=== PATIENT | female | born 1965 | race African-American/Black ===

== ENCOUNTER 2017-02-28 10:42 | Inpatient (IN) | payer OTHER ==
[2017-02-28 12:25] VITALS: BMI 39.3
--- NOTE | 2017-02-28 14:21 | HP ---
Admission [facility] Chief Complaint: REHAB TX FOR COCAINE AND ALCOHOL DEPENDENCE Allergies/Adverse Reactions: Allergies Allergy/AdvReac Type Severity Reaction Status Date / Time Fish Containing Products Allergy Severe Hives Verified 02/28/17 12:37 tomato Allergy Severe Verified 02/28/17 12:37 orange juice Allergy Intermediate Swelling Verified 02/28/17 12:37 No Known Drug Allergies Allergy Verified 02/28/17 12:37 History of Present Illness: 52 Y/O AA/FEMALE WITH A HX OF ALCOHOL AND COCAINE DEPENDENCE SEEKING REHAB TX Exam Limitations: No Limitations - Ebola screening Have you traveled outside of the country in the last 21 days: No Have you had contact with anyone from an Ebola affected area: No Have you been sick,other than usual withdrawal symptoms: No Do you have a fever: No - Review of Systems Constitutional: Chills, Night Sweats, Changes in sleep EENT: reports: Blurred Vision (WEARS GLASSES), Nose Congestion (HX ALLERGIES), Dental Problems (MISSING UPPER TEETH) Respiratory: reports: Shortness of Breath (HX ASTHMA), Wheezing GI: reports: Constipated, Diarrhea : reports: Frequency, Urgency Musculoskeletal: reports: Back Pain, Joint Pain, Muscle Pain Integumentary: reports: Dryness Neuro: reports: Headache ([place] HEADACHES), Numbness, Tingling, Tremors, Unsteady Gait, Dizziness, Other (HX PERIPHERAL NEUROPATHY) Endocrine: reports: Increased Thirst, Increased Urine Hematology: reports: No Symptoms Reported Psychiatric: reports: Orientated x3, Anxious, Depressed (HX DEPRESSION) Other Systems: Reviewed and Negative Patient History - Patient Medical History Hx Anemia: No Hx Asthma: Yes (ALBUTEROL INH) Hx Chronic Obstructive Pulmonary Disease (COPD): No Hx Cancer: No Hx Cardiac Disorders: No Hx Congestive Heart Failure: No Hx Hypertension: Yes (NON COMPLAINT WITH MEDS.) Hx Hypercholesterolemia: No Hx Pacemaker: No HX Cerebrovascular Accident: No Hx Seizures: No Hx Dementia: No Hx Diabetes: Yes (TYPE II ON MEDS) Hx Gastrointestinal Disorders: No Hx Liver Disease: No Hx Genitourinary Disorders: No Hx Sexually Transmitted Disorders: Yes (GENITAL HERPES ON TXMENT) Hx Renal Disease (ESRD): No Hx Thyroid Disease: No Hx Human Immunodeficiency Virus (HIV): No (NEGATIVE HX) Hx Hepatitis C: No Hx Depression: Yes (ON MEDS ) Hx Suicide Attempt: Yes (2014 DRUG OD. DENIES SI AT PRESENT TIME) Hx Bipolar Disorder: Yes (ON MEDS) Hx Schizophrenia: Yes (ON MEDS) - Patient Surgical History Past Surgical History: No Hx Neurologic Surgery: No Hx Cataract Extraction: No Hx Cardiac Surgery: No Hx Lung Surgery: No Hx Breast Surgery: No Hx Breast Biopsy: No Hx Abdominal Surgery: No Hx Appendectomy: No Hx Cholecystectomy: No Hx Genitourinary Surgery: No Hx Section: No Hx Orthopedic Surgery: No Hx Hysterectomy: No Anesthesia Reaction: No - PPD History Previous Implant?: Yes Implanted On Prior [facility] Admission?: No Date: 12/24/15 PPD to be Administered?: Yes - Reproductive History Patient is a Female of Child Bearing Age (11 -55 yrs old): 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 History Hx Alcohol Use: Yes (BEER/LIQUOR) Hx Substance Use: Yes (COCAINE) Substance Use Type: Alcohol, Cocaine Hx Substance Use Treatment: Yes ([facility]) - Substances Abused Alcohol Route: Oral Frequency: Daily Amount used: 1 6 PK AND LIQUOR Age of first use: 12 Date of Last Use: 02/28/17 Crack Route: Smoking Frequency: Daily Amount used: $60 Age of first use: 35 Date of Last Use: 02/27/17 Family Disease History - Family Disease History Family Disease History: Diabetes: Grandparent (HTN; GRANDMOTHER ), Father (), Mother (htn), Other: Grandparent, Mother Admission Physical Exam BHS - Vital Signs Vital Signs: Vital Signs - 24 hr 02/28/17 12:23 Temperature 97.2 F L Pulse Rate 82 Respiratory 20 Rate Blood Pressure 166/85 - Physical General Appearance: Yes: No Apparent Distress, Obese, Anxious HEENTM: Yes: EOMI, Normocephalic, KUNAL, Pharynx Normal Respiratory: Yes: Chest Non-Tender, Lungs Clear, Normal Breath Sounds, No Respiratory Distress Neck: Yes: No masses,lesions,Nodules, Supple, Trachea in good position Breast: Yes: Breast Exam Deferred Cardiology: Yes: Regular Rhythm, Regular Rate, S1, S2 Abdominal: Yes: Normal Bowel Sounds, Non Tender, Soft, Protuberent Genitourinary: Yes: Other (N/C) Musculoskeletal: Yes: Within Normal Limits Extremities: Yes: Normal Range of Motion, Non-Tender Neurological: Yes: payment poster [id number] NML intact, Fully Oriented, Alert Integumentary: Yes: Dry, Warm Lymphatic: Yes: Within Normal Limits - Diagnostic (1) Alcohol dependence with uncomplicated withdrawal Current Visit: Yes Status: Acute (2) Cocaine dependence, uncomplicated Current Visit: Yes Status: Acute (3) [id number] Current Visit: Yes Status: Chronic (4) Essential hypertension Current Visit: Yes Status: Chronic (5) Herpes genitalis in women Current Visit: Yes Status: Chronic (6) Neuropathy Current Visit: Yes Status: Chronic (7) Nicotine dependence, uncomplicated Current Visit: Yes Status: Chronic Qualifiers: Nicotine product type: cigarettes Qualified Code(s): F17.210 - Nicotine dependence, cigarettes, uncomplicated (8) Asthma Current Visit: Yes Status: Chronic Qualifiers: Asthma severity: mild intermittent Asthma complication type: uncomplicated Qualified Code(s): J45.20 - Mild intermittent asthma, uncomplicated Cleared for Admission [facility] - Detox or Rehab Claeared for Rehab Admission: Yes [facility] Breath Alcohol Content Breath Alcohol Content: 0 Urine Pregancy Test - Result Urine Test Results: Negative- NO Line Present Urine Drug Screen - Results Drug Screen Negative: No Urine Drug Screen Results: DUSTIN-Cocaine
[2017-02-28] MEDS ORDERED: DOCUSATE SODIUM 100 MG CAPSULE (FP) PO SCH (14:30)
[2017-02-28] MEDS ORDERED: ACETAMINOPHEN 325 MG TABLET (FP) PO PRN (14:48)
[2017-02-28] MEDS ORDERED: P-EPHED 60MG/TRIPROLIDI 2.5MG TABLET PO PRN (14:48)
[2017-02-28] MEDS ORDERED: hydrOXYzine PAMOATE 25 MG CAPSULE (FP) PO PRN (14:48)
[2017-02-28] MEDS ORDERED: MAGNESIUM HYDROX 2400MG/30ML ORAL SUSPENSION 30 ML CUP PO PRN (14:48)
[2017-02-28] MEDS ORDERED: MAGNESIUM CITRATE 300 ML BOTTLE PO PRN (14:48)
[2017-02-28] MEDS ORDERED: MAG HYDROX/AL HYDROX/SIMETH 30 ML UNIT-DOSE CUP PO PRN (14:48)
[2017-02-28] MEDS ORDERED: NICOTINE POLACRILEX 2 MG GUM BUC PRN (14:48)
[2017-02-28] MEDS ORDERED: diphenhydrAMINE HCL 50 MG CAPSULE PO PRN (14:48)
[2017-02-28] MEDS ORDERED: LOPERAMIDE HCL 2 MG CAPSULE PO PRN (14:48)
[2017-02-28] MEDS ORDERED: DOCUSATE SODIUM 100 MG CAPSULE (FP) PO PRN (15:04)
[2017-02-28] MEDS ORDERED: INSULIN (NOVOLOG) ASPART 100 UNITS/ML 10ML VIAL ONE (16:30)
[2017-02-28] MEDS: INSULIN SLIDING SCALE (NOVOLOG) 1 VIAL SQ SCH (16:37)
[2017-02-28] MEDS: metFORMIN HCL 500 MG TABLET (FP) PO SCH (16:58)
[2017-02-28] MEDS: valACYclovir HCL 500 MG TABLET (FP) PO SCH (21:34)
[2017-02-28] MEDS: THIAMINE HCL 100 MG TABLET (FP) PO SCH (21:34)
[2017-02-28] MEDS: GABAPENTIN 300 MG CAPSULE (FP) PO SCH (21:35)
[2017-02-28] MEDS: INSULIN DETEMIR 100 UNITS/ML MDV SQ SCH (21:35)
[2017-02-28] MEDS: PROPRANOLOL HCL 10 MG TABLET (FP) PO SCH (21:36)
[2017-02-28] MEDS: NICOTINE 14 MG/24 HOURS TOPICAL PATCH TD SCH (21:36)
[2017-03-01] MEDS: metFORMIN HCL 500 MG TABLET (FP) PO SCH ×2 (06:37→17:01)
[2017-03-01] MEDS: INSULIN SLIDING SCALE (NOVOLOG) 1 VIAL SQ SCH ×2 (06:39→17:02)
--- NOTE | 2017-03-01 09:14 | EKG ---
Test Reason : Blood Pressure : / mmHG Vent. Rate : 067 BPM Atrial Rate : 067 BPM P-R Int : 122 ms QRS Dur : 098 ms QT Int : 418 ms P-R-T Axes : 052 047 059 degrees QTc Int : 441 ms NORMAL SINUS RHYTHM CANNOT RULE OUT ANTERIOR INFARCT , AGE UNDETERMINED ABNORMAL ECG NO PREVIOUS ECGS AVAILABLE Confirmed by TEMI DOE MD ([id number]) on 03/01/2017 9:13:49 AM Referred By: Confirmed By:TEMI DOE MD
[2017-03-01] MEDS: PROPRANOLOL HCL 10 MG TABLET (FP) PO SCH ×2 (09:15→21:19)
[2017-03-01] MEDS: NICOTINE 14 MG/24 HOURS TOPICAL PATCH TD SCH (09:15)
[2017-03-01] MEDS: GABAPENTIN 300 MG CAPSULE (FP) PO SCH ×2 (09:15→21:18)
[2017-03-01] MEDS: PRENATAL VITAMINS W/ FOLIC ACID TABLET (FP) PO SCH (09:16)
[2017-03-01] MEDS: LISINOPRIL 10 MG TABLET (FP) PO SCH (09:16)
[2017-03-01] MEDS: valACYclovir HCL 500 MG TABLET (FP) PO SCH ×2 (09:16→21:16)
[2017-03-01] MEDS: INSULIN DETEMIR 100 UNITS/ML MDV SQ SCH ×2 (09:52→21:19)
[2017-03-01] MEDS: IBUPROFEN 400 MG TABLET (FP) PO PRN (14:44)
[2017-03-01] MEDS ORDERED: INSULIN (NOVOLOG) ASPART 100 UNITS/ML 10ML VIAL ONE (17:00)
[2017-03-01] MEDS: THIAMINE HCL 100 MG TABLET (FP) PO SCH (21:16)
[2017-03-01] MEDS ORDERED: PT OWN MED DRAWER 7, Y5N ONE (22:59)
[2017-03-01] MEDS ORDERED: INSULIN DETEMIR 100 UNITS/ML MDV SQ ONE (23:01)
[2017-03-02] MEDS: INSULIN SLIDING SCALE (NOVOLOG) 1 VIAL SQ SCH ×2 (06:29→16:41)
[2017-03-02] MEDS: metFORMIN HCL 500 MG TABLET (FP) PO SCH ×2 (06:29→17:48)
[2017-03-02] MEDS: LISINOPRIL 10 MG TABLET (FP) PO SCH (09:13)
[2017-03-02] MEDS: valACYclovir HCL 500 MG TABLET (FP) PO SCH ×2 (09:13→21:57)
[2017-03-02] MEDS: GABAPENTIN 300 MG CAPSULE (FP) PO SCH ×2 (09:13→21:57)
[2017-03-02] MEDS: PROPRANOLOL HCL 10 MG TABLET (FP) PO SCH ×2 (09:13→21:57)
[2017-03-02] MEDS: PRENATAL VITAMINS W/ FOLIC ACID TABLET (FP) PO SCH (09:13)
[2017-03-02] MEDS: INSULIN DETEMIR 100 UNITS/ML MDV SQ SCH ×2 (09:14→22:23)
[2017-03-02] MEDS: NICOTINE 14 MG/24 HOURS TOPICAL PATCH TD SCH (09:14)
[2017-03-02] MEDS: IBUPROFEN 400 MG TABLET (FP) PO PRN (14:56)
[2017-03-02] MEDS ORDERED: PT OWN MED DRAWER 7, Y5N ONE ×3 (16:52→22:02)
[2017-03-02] MEDS: THIAMINE HCL 100 MG TABLET (FP) PO SCH (21:57)
[2017-03-03] MEDS: metFORMIN HCL 500 MG TABLET (FP) PO SCH ×2 (06:18→16:54)
[2017-03-03] MEDS: INSULIN SLIDING SCALE (NOVOLOG) 1 VIAL SQ SCH ×2 (06:34→16:55)
--- NOTE | 2017-03-03 09:02 | HP ---
Psychiatrist Admission - Data Date of interview: 03/03/17 Admission source: [facility] Identifying data: This is the first admission to [address] [place] [address] for this 52 years old AA single mother of 5 grown children, supported by [facility],resides wirh boyfriend in low income house. Medical History: HTN,DM,Polyneuropathy. Psychiatric History: PAtient reports first contact with psychiatrist at 12 yearsold due to first nervious breakdown.Patient was admitted to the hospoital, dx with Schizoaffective disorder and placed on medications.Patient reports 10 more psychiatric hospitalizations.Patient reports most recent admission to [facility] in the [place] due to noncompliance with medicarions,depressed mood,drug use and drinking.Patient spent 6 days and restarted her medications: Trazodone 50 mg po hs ,Seroquel 200 mg po hs and Neurontin 300 mg po tid, Propranolol 10 mg po bid. Physical/Sexual Abuse/Trauma History: denies Vital Signs: Vital Signs - 24 hr 03/02/17 03/03/17 03/03/17 22:15 03:30 07:02 Temperature 98.3 F Pulse Rate 56 L 64 Respiratory 18 18 Rate Blood Pressure 176/87 135/86 Allergies/Adverse Reactions: Allergies Allergy/AdvReac Type Severity Reaction Status Date / Time Fish Containing Products Allergy Severe Hives Verified 02/28/17 12:37 tomato Allergy Severe Verified 02/28/17 12:37 orange juice Allergy Intermediate Swelling Verified 02/28/17 12:37 No Known Drug Allergies Allergy Verified 02/28/17 12:37 Date of last physical exam: 02/28/17 Concur with the findings of this exam: Yes - Substance Abuse/Tx History Hx Alcohol Use: Yes (drinking since 12 yo,beer,vodka spending $30 daily) Hx Substance Use: Yes (reports using cocaine since 45 yo,$250 daily) Substance Use Type: Alcohol, Cocaine Hx Substance Use Treatment: Yes - Admission Criteria Previous failed treatment: Yes Poor recovery environment: Yes Comorbidities: Yes Lacks judgement: Yes Mental Status Exam - Mental Status Exam Alert and Oriented to: Time, Place, Person Cognitive Function: Grossly Intact Patient Appearance: Well Groomed Mood: Anxious, Irritable Affect: Mood Congruent, Labile Patient Behavior: Cooperative Speech Pattern: Clear Voice Loudness: Normal Thought Process: Goal Oriented Thought Disorder: Being Controlled Hallucinations: Denies Suicidal Ideation: Denies Homicidal Ideation: Denies Insight/Judgement: Fair Sleep: Difficulty falling asleep Appetite: Good Muscle strength/Tone: Normal Gait/Station: Normal Psychiatric Findings - Problem List ([place] 1, 2,3) (1) Alcohol dependence with uncomplicated withdrawal Current Visit: Yes Status: Chronic (2) Cocaine dependence, uncomplicated Current Visit: Yes Status: Chronic (3) Asthma Current Visit: Yes Status: Chronic Qualifiers: Asthma severity: mild intermittent Asthma complication type: uncomplicated Qualified Code(s): J45.20 - Mild intermittent asthma, uncomplicated (4) [id number] Current Visit: Yes Status: Chronic (5) Essential hypertension Current Visit: Yes Status: Chronic (6) Herpes genitalis in women Current Visit: Yes Status: Chronic (7) Neuropathy Current Visit: Yes Status: Chronic (8) Nicotine dependence, uncomplicated Current Visit: Yes Status: Chronic Qualifiers: Nicotine product type: cigarettes Qualified Code(s): F17.210 - Nicotine dependence, cigarettes, uncomplicated (9) Schizoaffective disorder, depressive type Current Visit: Yes Status: Chronic - Initial Treatment Plan Initial Treatment Plan: Seroquel 200 mg po hs,Trazodone 50 mg po hs and Neurontin 300 mg po tid.Will monitor progress.
[2017-03-03] MEDS: NICOTINE 14 MG/24 HOURS TOPICAL PATCH TD SCH (09:15)
[2017-03-03] MEDS: GABAPENTIN 300 MG CAPSULE (FP) PO SCH ×2 (09:15→21:26)
[2017-03-03] MEDS: valACYclovir HCL 500 MG TABLET (FP) PO SCH ×2 (09:15→21:26)
[2017-03-03] MEDS: LISINOPRIL 10 MG TABLET (FP) PO SCH ×2 (09:16→21:30)
[2017-03-03] MEDS: PROPRANOLOL HCL 10 MG TABLET (FP) PO SCH ×2 (09:16→21:27)
[2017-03-03] MEDS: PRENATAL VITAMINS W/ FOLIC ACID TABLET (FP) PO SCH (09:16)
[2017-03-03] MEDS: INSULIN DETEMIR 100 UNITS/ML MDV SQ SCH ×2 (09:17→23:09)
--- NOTE | 2017-03-03 13:44 | PN ---
S Progress Note Note: BGM are wnl,we'll give levemir hs only,however bp is still high,we'll increase lisinopril to bid. Vital Signs - 24 hr 03/02/17 03/03/17 03/03/17 22:15 03:30 07:02 Temperature 98.3 F Pulse Rate 56 L 64 Respiratory 18 18 Rate Blood Pressure 176/87 135/86 03/03/17 10:00 Temperature Pulse Rate 78 Respiratory 20 Rate Blood Pressure 155/96
[2017-03-03 16:10] LABS: MCH 29.2 pg (25.7-33.7); MCHC 32.8 g/dl (32.0-36.0); MEAN CELL VOLUME 88.8 fl (80-96); MEAN PLT VOLUME 9.7 fl (7.5-11.1); PLATELET COUNT 228 K/MM3 (134-434); RDW 15.5 % (11.6-15.6); WHITE BLOOD COUNT 5.7 K/mm3 (4.0-10.0)
[2017-03-03 16:28] LABS: ALBUMIN 3.8 g/dl (3.4-5.0); CALCIUM 9.3 mg/dL (8.5-10.1); CO2 30 mmol/L (21-32); GLUCOSE,RANDOM 108 mg/dL (74-106); SGOT/AST 17 U/L (15-37); SGPT/ALT 31 U/L (12-78)
[2017-03-03 16:31] LABS: ALK PHOS 133 U/L (45-117); BILIRUBIN,TOTAL 0.4 mg/dL (0.2-1.0); CREATININE 0.8 mg/dL (0.55-1.02)
[2017-03-03 16:39] LABS: ANION GAP 6 (8-16)
[2017-03-03] MEDS ORDERED: INSULIN (NOVOLOG) ASPART 100 UNITS/ML 10ML VIAL ONE ×3 (16:48→23:06)
[2017-03-03 16:54] LABS: SICKLE CELL SCREEN NEGATIVE (NEGATIVE)
[2017-03-03] MEDS ORDERED: PT OWN MED DRAWER 7, Y5N ONE (19:46)
[2017-03-03] MEDS: QUEtiapine FUMARATE 200 MG TABLET PO SCH (21:26)
[2017-03-03] MEDS: THIAMINE HCL 100 MG TABLET (FP) PO SCH (21:26)
[2017-03-03] MEDS: traZODone HCL 50 MG TABLET (FP) PO SCH (21:27)
[2017-03-04] MEDS: metFORMIN HCL 500 MG TABLET (FP) PO SCH ×2 (06:46→17:02)
[2017-03-04] MEDS: MENTHOL/PHENOL 1 EACH UD MM PRN ×2 (06:47→15:24)
[2017-03-04] MEDS: INSULIN SLIDING SCALE (NOVOLOG) 1 VIAL SQ SCH ×2 (06:51→17:03)
[2017-03-04] MEDS ORDERED: PT OWN MED DRAWER 7, Y5N ONE ×3 (07:19→09:59)
[2017-03-04] MEDS: ALBUTEROL SO4 6.7 GM HFA INHALER IH PRN ×2 (07:33→13:00)
[2017-03-04] MEDS: valACYclovir HCL 500 MG TABLET (FP) PO SCH ×2 (09:59→21:41)
[2017-03-04] MEDS: PROPRANOLOL HCL 10 MG TABLET (FP) PO SCH ×2 (10:00→21:42)
[2017-03-04] MEDS: LISINOPRIL 10 MG TABLET (FP) PO SCH ×4 (10:00→21:43)
[2017-03-04] MEDS: GABAPENTIN 300 MG CAPSULE (FP) PO SCH ×2 (10:00→21:41)
[2017-03-04] MEDS: PRENATAL VITAMINS W/ FOLIC ACID TABLET (FP) PO SCH (10:01)
[2017-03-04] MEDS: NICOTINE 14 MG/24 HOURS TOPICAL PATCH TD SCH (10:01)
[2017-03-04] MEDS: guaiFENesin/D-METHORPHAN HB 10 ML UNIT-DOSE CUPS PO PRN (13:41)
[2017-03-04] MEDS: IBUPROFEN 400 MG TABLET (FP) PO PRN (18:31)
[2017-03-04] MEDS: traZODone HCL 50 MG TABLET (FP) PO SCH (21:41)
[2017-03-04] MEDS: INSULIN DETEMIR 100 UNITS/ML MDV SQ SCH (21:43)
[2017-03-04] MEDS: QUEtiapine FUMARATE 200 MG TABLET PO SCH (21:43)
[2017-03-04] MEDS: THIAMINE HCL 100 MG TABLET (FP) PO SCH (21:43)
[2017-03-05] MEDS: metFORMIN HCL 500 MG TABLET (FP) PO SCH ×2 (06:30→16:41)
[2017-03-05] MEDS: INSULIN SLIDING SCALE (NOVOLOG) 1 VIAL SQ SCH ×2 (06:31→16:41)
[2017-03-05] MEDS ORDERED: PT OWN MED DRAWER 7, Y5N ONE ×3 (08:22→21:37)
[2017-03-05] MEDS: MENTHOL/PHENOL 1 EACH UD MM PRN (08:29)
[2017-03-05 10:06] LABS: URINE APPEARANCE CLEAR; URINE BILIRUBIN NEGATIVE (NEGATIVE); URINE COLOR YELLOW; URINE GLUCOSE (UA) NEGATIVE (NEGATIVE); URINE KETONE NEGATIVE (NEGATIVE); URINE LEUK ESTERASE NEGATIVE (NEGATIVE); URINE NITRITE NEGATIVE (NEGATIVE); URINE PROTEIN NEGATIVE (NEGATIVE); URINE UROBILINOGEN NEGATIVE E.U./dl (0.2-1.0)
[2017-03-05] MEDS: PRENATAL VITAMINS W/ FOLIC ACID TABLET (FP) PO SCH (10:10)
[2017-03-05] MEDS: LISINOPRIL 10 MG TABLET (FP) PO SCH ×2 (10:10→21:35)
[2017-03-05] MEDS: valACYclovir HCL 500 MG TABLET (FP) PO SCH ×2 (10:10→21:35)
[2017-03-05] MEDS: PROPRANOLOL HCL 10 MG TABLET (FP) PO SCH ×2 (10:10→21:37)
[2017-03-05] MEDS: NICOTINE 14 MG/24 HOURS TOPICAL PATCH TD SCH (10:10)
[2017-03-05] MEDS: GABAPENTIN 300 MG CAPSULE (FP) PO SCH ×2 (10:10→21:35)
[2017-03-05 10:11] LABS: URINE BLOOD 1+ (NEGATIVE)
[2017-03-05 10:14] LABS: URINE RBC 1 /hpf (0-3); URINE WBC 1 /hpf (3-5)
[2017-03-05] MEDS: traZODone HCL 50 MG TABLET (FP) PO SCH (21:35)
[2017-03-05] MEDS: QUEtiapine FUMARATE 200 MG TABLET PO SCH (21:35)
[2017-03-05] MEDS: THIAMINE HCL 100 MG TABLET (FP) PO SCH (21:35)
[2017-03-05] MEDS: INSULIN DETEMIR 100 UNITS/ML MDV SQ SCH (21:39)
[2017-03-06] MEDS ORDERED: PT OWN MED DRAWER 7, Y5N ONE ×2 (05:06→09:44)
[2017-03-06] MEDS: ALBUTEROL SO4 6.7 GM HFA INHALER IH PRN (05:08)
[2017-03-06] MEDS: INSULIN SLIDING SCALE (NOVOLOG) 1 VIAL SQ SCH ×2 (06:40→16:38)
[2017-03-06] MEDS: metFORMIN HCL 500 MG TABLET (FP) PO SCH ×2 (06:41→16:37)
[2017-03-06] MEDS: PRENATAL VITAMINS W/ FOLIC ACID TABLET (FP) PO SCH (10:10)
[2017-03-06] MEDS: LISINOPRIL 10 MG TABLET (FP) PO SCH ×2 (10:11→21:30)
[2017-03-06] MEDS: valACYclovir HCL 500 MG TABLET (FP) PO SCH ×2 (10:11→21:30)
[2017-03-06] MEDS: GABAPENTIN 300 MG CAPSULE (FP) PO SCH ×2 (10:11→21:30)
[2017-03-06] MEDS: PROPRANOLOL HCL 10 MG TABLET (FP) PO SCH ×2 (10:11→21:31)
[2017-03-06] MEDS: NICOTINE 14 MG/24 HOURS TOPICAL PATCH TD SCH (10:12)
[2017-03-06] MEDS: traZODone HCL 50 MG TABLET (FP) PO SCH (21:30)
[2017-03-06] MEDS: THIAMINE HCL 100 MG TABLET (FP) PO SCH (21:30)
[2017-03-06] MEDS: INSULIN DETEMIR 100 UNITS/ML MDV SQ SCH (21:31)
[2017-03-06] MEDS: QUEtiapine FUMARATE 200 MG TABLET PO SCH (21:31)
[2017-03-07] MEDS: INSULIN SLIDING SCALE (NOVOLOG) 1 VIAL SQ SCH ×2 (06:28→17:19)
[2017-03-07] MEDS: metFORMIN HCL 500 MG TABLET (FP) PO SCH ×2 (06:28→17:18)
[2017-03-07] MEDS ORDERED: PT OWN MED DRAWER 7, Y5N ONE ×3 (08:45→19:52)
[2017-03-07] MEDS: NICOTINE 14 MG/24 HOURS TOPICAL PATCH TD SCH (10:29)
[2017-03-07] MEDS: PRENATAL VITAMINS W/ FOLIC ACID TABLET (FP) PO SCH (10:29)
[2017-03-07] MEDS: LISINOPRIL 10 MG TABLET (FP) PO SCH ×2 (10:29→21:46)
[2017-03-07] MEDS: GABAPENTIN 300 MG CAPSULE (FP) PO SCH ×2 (10:29→21:46)
[2017-03-07] MEDS: PROPRANOLOL HCL 10 MG TABLET (FP) PO SCH ×2 (10:29→21:46)
[2017-03-07] MEDS: valACYclovir HCL 500 MG TABLET (FP) PO SCH ×2 (10:29→21:46)
--- NOTE | 2017-03-07 16:22 | PN ---
Psychiatric Progress Note Vital Signs: Vital Signs Period Temp Pulse Resp BP Sys/Jimenez Pulse Ox Last 24 Hr 98.3 F 77-81 18-18 137-146/75-89 Date of Session: 03/07/17 Chief Complaint:: My sleep is still a problem. HPI: Alcohol,Cocaine dependence comorbid with Schizoaffective disorder. ROS: BA,DM,HTN. Current Medications: Active Medications Generic Name Dose Route Start Last Admin Trade Name Freq PRN Reason Stop Dose Admin Acetaminophen 650 mg 02/28/17 14:48 Tylenol - PO Q4H PRN PAIN Al Hydroxide/Mg Hydroxide 30 ml 02/28/17 14:48 Mylanta Oral Suspension - PO Q6H PRN DYSPEPSIA Albuterol Sulfate 2 puff 03/04/17 14:31 03/06/17 05:08 Ventolin Hfa Inhaler - IH 2 puff Q4H PRN Administration sob Diphenhydramine HCl 50 mg 02/28/17 14:48 03/04/17 21:42 Benadryl - PO 50 mg HSMR1 PRN Administration INSOMNIA Docusate Sodium 100 mg 02/28/17 15:04 03/03/17 21:26 Colace - PO 100 mg BID PRN Administration CONSTIPATION Eucalyptus/Menthol/Phenol/Sorbitol 1 each 02/28/17 14:48 03/05/17 08:29 Cepastat Lozenge - MM 1 each Q4H PRN Administration SORE THROAT Gabapentin 300 mg 02/28/17 22:00 03/07/17 10:29 Neurontin - PO 300 mg BID DARIO Administration Guaifenesin 10 ml 02/28/17 14:48 03/04/17 13:41 Robitussin Dm - PO 10 ml Q6H PRN Administration COUGH Hydroxyzine Pamoate 25 mg 02/28/17 14:48 03/03/17 09:33 Vistaril - PO 25 mg Q4H PRN Administration AGITATION Ibuprofen 400 mg 02/28/17 14:48 03/04/17 18:31 Motrin - PO 400 mg Q6H PRN Administration SEVERE PAIN Insulin Aspart 1 vial 02/28/17 16:30 03/07/17 06:28 Novolog Vial Sliding Scale - SQ Not Given BIDAC [facility] Protocol Insulin Detemir 20 units 03/03/17 22:00 03/06/17 21:31 Levemir Vial SQ Not Given HS DARIO Lisinopril 10 mg 03/04/17 10:00 03/07/17 10:29 Prinivil PO 10 mg BID DARIO Administration Loperamide HCl 4 mg 02/28/17 14:48 03/01/17 09:17 Imodium - PO 4 mg Q6H PRN Administration DIARRHEA Magnesium Citrate 300 ml 02/28/17 14:48 Citroma - PO Q48H PRN CONSTIPATION Magnesium Hydroxide 30 ml 02/28/17 14:48 Milk Of Magnesia - PO DAILY PRN CONSTIPATION Metformin HCl 500 mg 02/28/17 16:30 03/07/17 06:28 Glucophage - PO 500 mg BIDAC DARIO Administration Nicotine 14 mg 02/28/17 15:00 03/07/17 10:29 Nicoderm Patch - TD Not Given DAILY DARIO Nicotine Polacrilex 2 mg 02/28/17 14:48 Nicorette Gum - BUC Q2H PRN NICOTINE REPLACEMENT RX Multivit/Folic Acid/Iron 1 tab 03/01/17 10:00 03/07/17 10:29 Vitamins (Sjr) - PO 1 tab DAILY DARIO Administration Propranolol HCl 10 mg 02/28/17 22:00 03/07/17 10:29 Inderal - PO 10 mg BID DARIO Administration Pseudoephedrine/Triprolidine 1 combo 02/28/17 14:48 03/05/17 08:28 Actifed - PO 1 combo TID PRN Administration NASAL CONGESTION Quetiapine Fumarate 200 mg 03/03/17 22:00 03/06/17 21:31 Seroquel - PO Not Given HS DARIO Thiamine HCl 100 mg 02/28/17 22:00 03/06/17 21:30 Vitamin B1 - PO 100 mg HS DARIO Administration Valacyclovir HCl 500 mg 02/28/17 22:00 03/07/17 10:29 Valtrex - PO 500 mg BID DARIO Administration Current Side Effect: No Lab tests ordered: No Lab tests reviewed: Yes Provider note:: Chart was revuewed,patient was evaluated.Patient addressed ongoing sleeping difficulties,inability to fall asleep and interrupted sleep pattern.Properties of Trazodone has been discussed with the patient ,relaxation techniques has been discussed as well.Trazodone 50 mg po hs will be adjusted to 100 mg po hs. Supportive therapy provided. Total face to face time:: 30 Mental Status Exam - Mental Status Exam Alert and Oriented to: Time, Place, Person Cognitive Function: Grossly Intact Patient Appearance: Well Groomed Mood: Anxious Affect: Mood Congruent Patient Behavior: Cooperative Speech Pattern: Clear Voice Loudness: Normal Thought Process: Goal Oriented Thought Disorder: Not Present Hallucinations: Denies Suicidal Ideation: Denies Homicidal Ideation: Denies Insight/Judgement: Fair Sleep: Difficulty falling asleep Appetite: Good Muscle strength/Tone: Normal Gait/Station: Normal Psychiatric Treatment Plan - Problem List (1) Alcohol dependence with uncomplicated withdrawal Current Visit: Yes (2) Cocaine dependence, uncomplicated Current Visit: Yes (3) Asthma Current Visit: Yes Qualifiers: Asthma severity: mild intermittent Asthma complication type: uncomplicated Qualified Code(s): J45.20 - Mild intermittent asthma, uncomplicated (4) [id number] Current Visit: Yes (5) Essential hypertension Current Visit: Yes (6) Herpes genitalis in women Current Visit: Yes (7) Neuropathy Current Visit: Yes (8) Nicotine dependence, uncomplicated Current Visit: Yes Qualifiers: Nicotine product type: cigarettes Qualified Code(s): F17.210 - Nicotine dependence, cigarettes, uncomplicated (9) Schizoaffective disorder, depressive type Current Visit: Yes
[2017-03-07] MEDS: THIAMINE HCL 100 MG TABLET (FP) PO SCH (21:46)
[2017-03-07] MEDS: traZODone HCL 100 MG TABLET (FP) PO SCH (21:46)
[2017-03-07] MEDS: QUEtiapine FUMARATE 200 MG TABLET PO SCH (21:46)
[2017-03-07] MEDS: INSULIN DETEMIR 100 UNITS/ML MDV SQ SCH (21:48)
[2017-03-08] MEDS: metFORMIN HCL 500 MG TABLET (FP) PO SCH ×2 (06:59→16:53)
[2017-03-08] MEDS ORDERED: PT OWN MED DRAWER 7, Y5N ONE ×2 (07:06→08:33)
[2017-03-08] MEDS: INSULIN SLIDING SCALE (NOVOLOG) 1 VIAL SQ SCH ×2 (07:10→16:30)
[2017-03-08] MEDS: valACYclovir HCL 500 MG TABLET (FP) PO SCH ×2 (10:03→21:40)
[2017-03-08] MEDS: GABAPENTIN 300 MG CAPSULE (FP) PO SCH ×2 (10:03→21:40)
[2017-03-08] MEDS: LISINOPRIL 10 MG TABLET (FP) PO SCH ×2 (10:03→21:40)
[2017-03-08] MEDS: PROPRANOLOL HCL 10 MG TABLET (FP) PO SCH ×2 (10:03→21:42)
[2017-03-08] MEDS: PRENATAL VITAMINS W/ FOLIC ACID TABLET (FP) PO SCH (10:04)
[2017-03-08] MEDS: NICOTINE 14 MG/24 HOURS TOPICAL PATCH TD SCH (10:04)
[2017-03-08] MEDS: traZODone HCL 100 MG TABLET (FP) PO SCH (21:40)
[2017-03-08] MEDS: QUEtiapine FUMARATE 200 MG TABLET PO SCH (21:40)
[2017-03-08] MEDS: THIAMINE HCL 100 MG TABLET (FP) PO SCH (21:41)
[2017-03-08] MEDS: INSULIN DETEMIR 100 UNITS/ML MDV SQ SCH (21:42)
[2017-03-09] MEDS: metFORMIN HCL 500 MG TABLET (FP) PO SCH ×2 (06:36→16:58)
[2017-03-09] MEDS: INSULIN SLIDING SCALE (NOVOLOG) 1 VIAL SQ SCH ×2 (06:37→16:59)
[2017-03-09] MEDS ORDERED: PT OWN MED DRAWER 7, Y5N ONE (08:34)
[2017-03-09] MEDS: PRENATAL VITAMINS W/ FOLIC ACID TABLET (FP) PO SCH (10:07)
[2017-03-09] MEDS: NICOTINE 14 MG/24 HOURS TOPICAL PATCH TD SCH (10:07)
[2017-03-09] MEDS: LISINOPRIL 10 MG TABLET (FP) PO SCH ×2 (10:07→21:44)
[2017-03-09] MEDS: valACYclovir HCL 500 MG TABLET (FP) PO SCH ×2 (10:07→21:43)
[2017-03-09] MEDS: PROPRANOLOL HCL 10 MG TABLET (FP) PO SCH ×2 (10:07→21:44)
[2017-03-09] MEDS: GABAPENTIN 300 MG CAPSULE (FP) PO SCH ×2 (10:07→21:43)
[2017-03-09] MEDS: THIAMINE HCL 100 MG TABLET (FP) PO SCH (21:42)
[2017-03-09] MEDS: QUEtiapine FUMARATE 200 MG TABLET PO SCH (21:43)
[2017-03-09] MEDS: traZODone HCL 100 MG TABLET (FP) PO SCH (21:43)
[2017-03-09] MEDS: INSULIN DETEMIR 100 UNITS/ML MDV SQ SCH (21:44)
[2017-03-10] MEDS: metFORMIN HCL 500 MG TABLET (FP) PO SCH ×2 (06:39→16:55)
[2017-03-10] MEDS: INSULIN SLIDING SCALE (NOVOLOG) 1 VIAL SQ SCH ×2 (07:09→16:56)
[2017-03-10] MEDS: ALBUTEROL SO4 6.7 GM HFA INHALER IH PRN (08:45)
[2017-03-10] MEDS ORDERED: PT OWN MED DRAWER 7, Y5N ONE ×4 (09:29→19:31)
[2017-03-10] MEDS: GABAPENTIN 300 MG CAPSULE (FP) PO SCH ×2 (10:13→21:36)
[2017-03-10] MEDS: PROPRANOLOL HCL 10 MG TABLET (FP) PO SCH ×2 (10:13→21:36)
[2017-03-10] MEDS: valACYclovir HCL 500 MG TABLET (FP) PO SCH ×2 (10:13→21:35)
[2017-03-10] MEDS: LISINOPRIL 10 MG TABLET (FP) PO SCH ×2 (10:13→21:35)
[2017-03-10] MEDS: NICOTINE 14 MG/24 HOURS TOPICAL PATCH TD SCH (10:14)
[2017-03-10] MEDS: PRENATAL VITAMINS W/ FOLIC ACID TABLET (FP) PO SCH (10:14)
[2017-03-10] MEDS: THIAMINE HCL 100 MG TABLET (FP) PO SCH (21:35)
[2017-03-10] MEDS: QUEtiapine FUMARATE 200 MG TABLET PO SCH (21:35)
[2017-03-10] MEDS: traZODone HCL 100 MG TABLET (FP) PO SCH (21:35)
[2017-03-10] MEDS: INSULIN DETEMIR 100 UNITS/ML MDV SQ SCH (21:36)
[2017-03-11] MEDS ORDERED: PT OWN MED DRAWER 7, Y5N ONE ×4 (05:56→20:45)
[2017-03-11] MEDS: MENTHOL/PHENOL 1 EACH UD MM PRN (05:59)
[2017-03-11] MEDS: guaiFENesin/D-METHORPHAN HB 10 ML UNIT-DOSE CUPS PO PRN (05:59)
[2017-03-11] MEDS: metFORMIN HCL 500 MG TABLET (FP) PO SCH ×2 (06:00→16:38)
[2017-03-11] MEDS: INSULIN SLIDING SCALE (NOVOLOG) 1 VIAL SQ SCH ×2 (06:31→16:30)
[2017-03-11] MEDS: valACYclovir HCL 500 MG TABLET (FP) PO SCH ×2 (10:31→21:32)
[2017-03-11] MEDS: GABAPENTIN 300 MG CAPSULE (FP) PO SCH ×2 (10:31→21:32)
[2017-03-11] MEDS: PROPRANOLOL HCL 10 MG TABLET (FP) PO SCH ×2 (10:31→21:32)
[2017-03-11] MEDS: PRENATAL VITAMINS W/ FOLIC ACID TABLET (FP) PO SCH (10:31)
[2017-03-11] MEDS: LISINOPRIL 10 MG TABLET (FP) PO SCH ×2 (10:31→21:32)
[2017-03-11] MEDS: NICOTINE 14 MG/24 HOURS TOPICAL PATCH TD SCH (10:31)
[2017-03-11] MEDS: ALBUTEROL SO4 6.7 GM HFA INHALER IH PRN ×2 (10:32→16:28)
[2017-03-11] MEDS: THIAMINE HCL 100 MG TABLET (FP) PO SCH (21:32)
[2017-03-11] MEDS: QUEtiapine FUMARATE 200 MG TABLET PO SCH (21:32)
[2017-03-11] MEDS: traZODone HCL 100 MG TABLET (FP) PO SCH (21:32)
[2017-03-11] MEDS: INSULIN DETEMIR 100 UNITS/ML MDV SQ SCH (21:34)
[2017-03-12] MEDS: ALBUTEROL SO4 2.5/IPRATROPIUM 0.5 INH SOL 3 ML VIAL.NEB. NEB PRN ×3 (02:13→15:30)
[2017-03-12] MEDS: ALBUTEROL SO4 6.7 GM HFA INHALER IH PRN (06:31)
[2017-03-12] MEDS: metFORMIN HCL 500 MG TABLET (FP) PO SCH ×2 (06:33→16:54)
[2017-03-12] MEDS: INSULIN SLIDING SCALE (NOVOLOG) 1 VIAL SQ SCH ×2 (06:36→16:40)
[2017-03-12] MEDS ORDERED: PT OWN MED DRAWER 7, Y5N ONE ×2 (09:03→23:10)
[2017-03-12] MEDS: PRENATAL VITAMINS W/ FOLIC ACID TABLET (FP) PO SCH (10:19)
[2017-03-12] MEDS: LISINOPRIL 10 MG TABLET (FP) PO SCH ×2 (10:19→21:31)
[2017-03-12] MEDS: PROPRANOLOL HCL 10 MG TABLET (FP) PO SCH ×2 (10:19→21:32)
[2017-03-12] MEDS: GABAPENTIN 300 MG CAPSULE (FP) PO SCH ×2 (10:20→21:31)
[2017-03-12] MEDS: valACYclovir HCL 500 MG TABLET (FP) PO SCH ×2 (10:20→21:31)
[2017-03-12] MEDS: NICOTINE 14 MG/24 HOURS TOPICAL PATCH TD SCH (10:20)
[2017-03-12] MEDS: QUEtiapine FUMARATE 200 MG TABLET PO SCH (21:31)
[2017-03-12] MEDS: THIAMINE HCL 100 MG TABLET (FP) PO SCH (21:31)
[2017-03-12] MEDS: traZODone HCL 100 MG TABLET (FP) PO SCH (21:31)
[2017-03-12] MEDS: INSULIN DETEMIR 100 UNITS/ML MDV SQ SCH (21:32)
[2017-03-13] MEDS: metFORMIN HCL 500 MG TABLET (FP) PO SCH ×2 (06:14→16:44)
[2017-03-13] MEDS: INSULIN SLIDING SCALE (NOVOLOG) 1 VIAL SQ SCH ×2 (06:15→16:45)
[2017-03-13] MEDS ORDERED: PT OWN MED DRAWER 7, Y5N ONE (08:26)
[2017-03-13] MEDS: PROPRANOLOL HCL 10 MG TABLET (FP) PO SCH (09:43)
[2017-03-13] MEDS: valACYclovir HCL 500 MG TABLET (FP) PO SCH ×2 (09:43→21:18)
[2017-03-13] MEDS: LISINOPRIL 10 MG TABLET (FP) PO SCH ×2 (09:44→21:18)
[2017-03-13] MEDS: PRENATAL VITAMINS W/ FOLIC ACID TABLET (FP) PO SCH (09:44)
[2017-03-13] MEDS: GABAPENTIN 300 MG CAPSULE (FP) PO SCH ×2 (09:44→21:18)
[2017-03-13] MEDS: ALBUTEROL SO4 2.5/IPRATROPIUM 0.5 INH SOL 3 ML VIAL.NEB. NEB PRN (09:44)
[2017-03-13] MEDS: NICOTINE 14 MG/24 HOURS TOPICAL PATCH TD SCH (09:44)
[2017-03-13] MEDS ORDERED: ALBUTEROL SO4 2.5/IPRATROPIUM 0.5 INH SOL 3 ML VIAL.NEB. NEB PRN (13:55)
[2017-03-13] MEDS: ALBUTEROL SO4 2.5/IPRATROPIUM 0.5 INH SOL 3 ML VIAL.NEB. NEB SCH ×2 (14:06→21:20)
--- NOTE | 2017-03-13 14:06 | PN ---
[facility] Progress Note Note: Pt. is wheezing & C/O SOB Vital Signs - 8 hr 03/13/17 03/13/17 06:49 09:36 Temperature 98.3 F Pulse Rate 99 H 86 Respiratory 18 Rate Blood Pressure 122/74 141/75 Laboratory Tests 02/28/17 02/28/17 02/28/17 14:00 14:50 14:50 WBC Cancelled Corrected WBC (auto) Cancelled RBC Cancelled Hgb Cancelled Hct Cancelled MCV Cancelled MCHC Cancelled RDW Cancelled Plt Count Cancelled MPV Cancelled Differential Comment Cancelled Platelet Estimate Cancelled Platelet Comment Cancelled RBC Morphology Cancelled Sickle Cell Screen Sodium Cancelled Potassium Cancelled Chloride Cancelled Carbon Dioxide Cancelled Anion Gap Cancelled BUN Cancelled Creatinine Cancelled Creat Clearance w eGFR Cancelled POC Glucometer Random Glucose Cancelled Calcium Cancelled Total Bilirubin Cancelled AST Cancelled ALT Cancelled Alkaline Phosphatase Cancelled Total Protein Cancelled Albumin Cancelled Urine Color Cancelled Urine Appearance Cancelled Urine pH Cancelled Ur Specific [place] Cancelled Urine Protein Cancelled Urine Glucose (UA) Cancelled Urine Clinitest Cancelled Urine Ketones Cancelled Urine Blood Cancelled Urine Nitrite Cancelled Urine Bilirubin Cancelled Urine Ictotest Cancelled Prot Sulfosalicylic Acd Cancelled Urine Urobilinogen Cancelled Ur Leukocyte Esterase Cancelled Urine RBC Urine WBC Ur Epithelial Cells RPR Titer 02/28/17 02/28/17 02/28/17 14:50 16:34 21:34 WBC Corrected WBC (auto) RBC Hgb Hct MCV MCHC RDW Plt Count MPV Differential Comment Platelet Estimate Platelet Comment RBC Morphology Sickle Cell Screen Sodium Potassium Chloride Carbon Dioxide Anion Gap BUN Creatinine Creat Clearance w eGFR POC Glucometer 95 107 Random Glucose Calcium Total Bilirubin AST ALT Alkaline Phosphatase Total Protein Albumin Urine Color Urine Appearance Urine pH Ur Specific [place] Urine Protein Urine Glucose (UA) Urine Clinitest Urine Ketones Urine Blood Urine Nitrite Urine Bilirubin Urine Ictotest Prot Sulfosalicylic Acd Urine Urobilinogen Ur Leukocyte Esterase Urine RBC Urine WBC Ur Epithelial Cells RPR Titer Cancelled 03/01/17 03/01/17 03/01/17 06:36 17:01 21:17 WBC Corrected WBC (auto) RBC Hgb Hct MCV MCHC RDW Plt Count MPV Differential Comment Platelet Estimate Platelet Comment RBC Morphology Sickle Cell Screen Sodium Potassium Chloride Carbon Dioxide Anion Gap BUN Creatinine Creat Clearance w eGFR POC Glucometer 93 100 105 Random Glucose Calcium Total Bilirubin AST ALT Alkaline Phosphatase Total Protein Albumin Urine Color Urine Appearance Urine pH Ur Specific [place] Urine Protein Urine Glucose (UA) Urine Clinitest Urine Ketones Urine Blood Urine Nitrite Urine Bilirubin Urine Ictotest Prot Sulfosalicylic Acd Urine Urobilinogen Ur Leukocyte Esterase Urine RBC Urine WBC Ur Epithelial Cells RPR Titer 03/02/17 03/02/17 03/02/17 06:28 16:27 21:00 WBC Corrected WBC (auto) RBC Hgb Hct MCV MCHC RDW Plt Count MPV Differential Comment Platelet Estimate Platelet Comment RBC Morphology Sickle Cell Screen Sodium Potassium Chloride Carbon Dioxide Anion Gap BUN Creatinine Creat Clearance w eGFR POC Glucometer 107 117 118 Random Glucose Calcium Total Bilirubin AST ALT Alkaline Phosphatase Total Protein Albumin Urine Color Urine Appearance Urine pH Ur Specific [place] Urine Protein Urine Glucose (UA) Urine Clinitest Urine Ketones Urine Blood Urine Nitrite Urine Bilirubin Urine Ictotest Prot Sulfosalicylic Acd Urine Urobilinogen Ur Leukocyte Esterase Urine RBC Urine WBC Ur Epithelial Cells RPR Titer 03/03/17 03/03/17 03/03/17 06:17 11:20 11:20 WBC 5.7 Corrected WBC (auto) RBC 4.65 Hgb 13.6 Hct 41.3 MCV 88.8 MCHC 32.8 RDW 15.5 Plt Count 228 MPV 9.7 D Differential Comment Platelet Estimate Platelet Comment RBC Morphology Sickle Cell Screen Negative Sodium 141 Potassium 4.4 Chloride 105 Carbon Dioxide 30 Anion Gap 6 L BUN 14 Creatinine 0.8 Creat Clearance w eGFR > 60 POC Glucometer 113 Random Glucose 108 H Calcium 9.3 Total Bilirubin 0.4 AST 17 D ALT 31 Alkaline Phosphatase 133 H Total Protein 7.0 Albumin 3.8 Urine Color Urine Appearance Urine pH Ur Specific [place] Urine Protein Urine Glucose (UA) Urine Clinitest Urine Ketones Urine Blood Urine Nitrite Urine Bilirubin Urine Ictotest Prot Sulfosalicylic Acd Urine Urobilinogen Ur Leukocyte Esterase Urine RBC Urine WBC Ur Epithelial Cells RPR Titer 03/03/17 03/03/17 03/03/17 11:20 16:54 21:28 WBC Corrected WBC (auto) RBC Hgb Hct MCV MCHC RDW Plt Count MPV Differential Comment Platelet Estimate Platelet Comment RBC Morphology Sickle Cell Screen Sodium Potassium Chloride Carbon Dioxide Anion Gap BUN Creatinine Creat Clearance w eGFR POC Glucometer 133 83 Random Glucose Calcium Total Bilirubin AST ALT Alkaline Phosphatase Total Protein Albumin Urine Color Urine Appearance Urine pH Ur Specific [place] Urine Protein Urine Glucose (UA) Urine Clinitest Urine Ketones Urine Blood Urine Nitrite Urine Bilirubin Urine Ictotest Prot Sulfosalicylic Acd Urine Urobilinogen Ur Leukocyte Esterase Urine RBC Urine WBC Ur Epithelial Cells RPR Titer Nonreactive 03/04/17 03/04/17 03/05/17 06:45 17:00 06:29 WBC Corrected WBC (auto) RBC Hgb Hct MCV MCHC RDW Plt Count MPV Differential Comment Platelet Estimate Platelet Comment RBC Morphology Sickle Cell Screen Sodium Potassium Chloride Carbon Dioxide Anion Gap BUN Creatinine Creat Clearance w eGFR POC Glucometer 117 108 123 Random Glucose Calcium Total Bilirubin AST ALT Alkaline Phosphatase Total Protein Albumin Urine Color Urine Appearance Urine pH Ur Specific [place] Urine Protein Urine Glucose (UA) Urine Clinitest Urine Ketones Urine Blood Urine Nitrite Urine Bilirubin Urine Ictotest Prot Sulfosalicylic Acd Urine Urobilinogen Ur Leukocyte Esterase Urine RBC Urine WBC Ur Epithelial Cells RPR Titer 03/05/17 03/05/17 03/06/17 07:00 16:40 06:39 WBC Corrected WBC (auto) RBC Hgb Hct MCV MCHC RDW Plt Count MPV Differential Comment Platelet Estimate Platelet Comment RBC Morphology Sickle Cell Screen Sodium Potassium Chloride Carbon Dioxide Anion Gap BUN Creatinine Creat Clearance w eGFR POC Glucometer 94 150 Random Glucose Calcium Total Bilirubin AST ALT Alkaline Phosphatase Total Protein Albumin Urine Color Yellow Urine Appearance Clear Urine pH 6.0 Ur Specific [place] 1.020 Urine Protein Negative Urine Glucose (UA) Negative Urine Clinitest Urine Ketones Negative Urine Blood 1+ H Urine Nitrite Negative Urine Bilirubin Negative Urine Ictotest Prot Sulfosalicylic Acd Urine Urobilinogen Negative Ur Leukocyte Esterase Negative Urine RBC 1 Urine WBC 1 Ur Epithelial Cells Moderate RPR Titer 03/06/17 03/07/17 03/07/17 16:37 06:27 17:17 WBC Corrected WBC (auto) RBC Hgb Hct MCV MCHC RDW Plt Count MPV Differential Comment Platelet Estimate Platelet Comment RBC Morphology Sickle Cell Screen Sodium Potassium Chloride Carbon Dioxide Anion Gap BUN Creatinine Creat Clearance w eGFR POC Glucometer 96 143 109 Random Glucose Calcium Total Bilirubin AST ALT Alkaline Phosphatase Total Protein Albumin Urine Color Urine Appearance Urine pH Ur Specific [place] Urine Protein Urine Glucose (UA) Urine Clinitest Urine Ketones Urine Blood Urine Nitrite Urine Bilirubin Urine Ictotest Prot Sulfosalicylic Acd Urine Urobilinogen Ur Leukocyte Esterase Urine RBC Urine WBC Ur Epithelial Cells RPR Titer 03/08/17 03/08/17 03/09/17 06:58 16:51 06:35 WBC Corrected WBC (auto) RBC Hgb Hct MCV MCHC RDW Plt Count MPV Differential Comment Platelet Estimate Platelet Comment RBC Morphology Sickle Cell Screen Sodium Potassium Chloride Carbon Dioxide Anion Gap BUN Creatinine Creat Clearance w eGFR POC Glucometer 106 111 110 Random Glucose Calcium Total Bilirubin AST ALT Alkaline Phosphatase Total Protein Albumin Urine Color Urine Appearance Urine pH Ur Specific [place] Urine Protein Urine Glucose (UA) Urine Clinitest Urine Ketones Urine Blood Urine Nitrite Urine Bilirubin Urine Ictotest Prot Sulfosalicylic Acd Urine Urobilinogen Ur Leukocyte Esterase Urine RBC Urine WBC Ur Epithelial Cells RPR Titer 03/09/17 03/09/17 03/10/17 16:58 21:42 06:38 WBC Corrected WBC (auto) RBC Hgb Hct MCV MCHC RDW Plt Count MPV Differential Comment Platelet Estimate Platelet Comment RBC Morphology Sickle Cell Screen Sodium Potassium Chloride Carbon Dioxide Anion Gap BUN Creatinine Creat Clearance w eGFR POC Glucometer 131 106 124 Random Glucose Calcium Total Bilirubin AST ALT Alkaline Phosphatase Total Protein Albumin Urine Color Urine Appearance Urine pH Ur Specific [place] Urine Protein Urine Glucose (UA) Urine Clinitest Urine Ketones Urine Blood Urine Nitrite Urine Bilirubin Urine Ictotest Prot Sulfosalicylic Acd Urine Urobilinogen Ur Leukocyte Esterase Urine RBC Urine WBC Ur Epithelial Cells RPR Titer 03/10/17 03/11/17 03/11/17 16:54 05:58 16:30 WBC Corrected WBC (auto) RBC Hgb Hct MCV MCHC RDW Plt Count MPV Differential Comment Platelet Estimate Platelet Comment RBC Morphology Sickle Cell Screen Sodium Potassium Chloride Carbon Dioxide Anion Gap BUN Creatinine Creat Clearance w eGFR POC Glucometer 107 90 102 Random Glucose Calcium Total Bilirubin AST ALT Alkaline Phosphatase Total Protein Albumin Urine Color Urine Appearance Urine pH Ur Specific [place] Urine Protein Urine Glucose (UA) Urine Clinitest Urine Ketones Urine Blood Urine Nitrite Urine Bilirubin Urine Ictotest Prot Sulfosalicylic Acd Urine Urobilinogen Ur Leukocyte Esterase Urine RBC Urine WBC Ur Epithelial Cells RPR Titer 03/12/17 03/12/17 03/13/17 06:34 16:54 06:14 WBC Corrected WBC (auto) RBC Hgb Hct MCV MCHC RDW Plt Count MPV Differential Comment Platelet Estimate Platelet Comment RBC Morphology Sickle Cell Screen Sodium Potassium Chloride Carbon Dioxide Anion Gap BUN Creatinine Creat Clearance w eGFR POC Glucometer 126 117 118 Random Glucose Calcium Total Bilirubin AST ALT Alkaline Phosphatase Total Protein Albumin Urine Color Urine Appearance Urine pH Ur Specific [place] Urine Protein Urine Glucose (UA) Urine Clinitest Urine Ketones Urine Blood Urine Nitrite Urine Bilirubin Urine Ictotest Prot Sulfosalicylic Acd Urine Urobilinogen Ur Leukocyte Esterase Urine RBC Urine WBC Ur Epithelial Cells RPR Titer Lungs : B/L expiratory wheezing O2 sat 100% P : Nebulizer tx. with duoned prednisone 60mg x 4d singulair symbicort
[2017-03-13] MEDS: predniSONE 20 MG TABLET (UD) PO SCH (15:09)
[2017-03-13] MEDS: BUDESONIDE/FORMETEROL FUMARATE 160/4.5 mcg INHALER IH SCH ×2 (15:10→21:19)
[2017-03-13] MEDS: THIAMINE HCL 100 MG TABLET (FP) PO SCH (21:18)
[2017-03-13] MEDS: traZODone HCL 100 MG TABLET (FP) PO SCH (21:18)
[2017-03-13] MEDS: QUEtiapine FUMARATE 200 MG TABLET PO SCH (21:18)
[2017-03-13] MEDS: INSULIN DETEMIR 100 UNITS/ML MDV SQ SCH (21:19)
[2017-03-13] MEDS ORDERED: MONTELUKAST NA 10 MG TABLET PO SCH (22:00)
[2017-03-14] MEDS: metFORMIN HCL 500 MG TABLET (FP) PO SCH (06:37)
[2017-03-14] MEDS: INSULIN SLIDING SCALE (NOVOLOG) 1 VIAL SQ SCH (06:37)
[2017-03-14 07:15] VITALS: TEMP 98
[2017-03-14] MEDS ORDERED: PT OWN MED DRAWER 7, Y5N ONE (08:49)
[2017-03-14] MEDS ORDERED: amLODIPine BESYLATE 5 MG TABLET (FP) PO SCH (10:00)
[2017-03-14] MEDS: PRENATAL VITAMINS W/ FOLIC ACID TABLET (FP) PO SCH (10:11)
[2017-03-14] MEDS: GABAPENTIN 300 MG CAPSULE (FP) PO SCH (10:12)
[2017-03-14] MEDS: BUDESONIDE/FORMETEROL FUMARATE 160/4.5 mcg INHALER IH SCH (10:12)
[2017-03-14] MEDS: NICOTINE 14 MG/24 HOURS TOPICAL PATCH TD SCH (10:12)
[2017-03-14] MEDS: LISINOPRIL 10 MG TABLET (FP) PO SCH (10:12)
[2017-03-14] MEDS: valACYclovir HCL 500 MG TABLET (FP) PO SCH (10:12)
[2017-03-14] MEDS: ALBUTEROL SO4 2.5/IPRATROPIUM 0.5 INH SOL 3 ML VIAL.NEB. NEB SCH (10:13)
[2017-03-14 10:17] VITALS: BP 152/89; PULSE 93
[2017-03-14] MEDS: predniSONE 20 MG TABLET (UD) PO SCH (10:53)
--- NOTE | 2017-03-14 15:25 | PN ---
[facility] Progress Note Note: Called by nursing staff for discharge order for patient. According to staff, patient is being referred to [facility] for outpatient treatment. She was on Seroquel 200 mg po HS, Trazadone 100 mg po HS and Gabapentin 300 mg po TID. She has enough supply of her own medications until she sees [facility] treating psychiatrist. According to staff she is stable for discharge
== END 2017-03-14 15:46 | disposition home or self-care (01) | DRG 772 ==
LOC: YASAS 10:42 → Y3E 14:18
PROVIDERS: ADMIT Psychiatry & Neurology Psychiatry; ATTEND Psychiatry & Neurology Psychiatry
PROC: HZ42ZZZ Group Counseling for Substance Abuse Treatment, Cognitive-Behavioral (ICD-10-PCS; principal; 2017-03-14)
DX: F10.230 Alcohol dependence with withdrawal, uncomplicated (principal); F14.20 Cocaine dependence, uncomplicated; F17.210 Nicotine dependence, cigarettes, uncomplicated; F25.9 Schizoaffective disorder, unspecified; I10 Essential (primary) hypertension; J45.20 Mild intermittent asthma, uncomplicated; G62.9 Polyneuropathy, unspecified; E11.9 Type 2 diabetes mellitus without complications; A60.04 Herpesviral vulvovaginitis
CPT/HCPCS: 36415; 80053; 81003; 81015; 85027; 85660; 86593; 93005; 93010; 94640

== ENCOUNTER 2017-07-04 10:48 | Inpatient (IN) | payer OTHER ==
[2017-07-04 11:11] VITALS: BMI 43.9
--- NOTE | 2017-07-04 14:50 | HP ---
CIWA Score - CIWA Score Nausea/Vomitin Muscle Tremors: 3 Anxiety: 4-Mod. Anxious/Guarded Agitation: 3 Paroxysmal Sweats: No Perspiration Orientation: 0-Oriented Tacttile Disturbances: 0-None Auditory Disturbances: 2-Mild Harshness/Frighten Visual Disturbances: 2-Mild Sensitivity Headache: 0-None Present CIWA-Ar Total Score: 19 Admission ROS BHS - HPI Chief Complaint: "I'm tired from using and I need some rest." Pt. is here to Detox from Alcohol. Allergies/Adverse Reactions: Allergies Allergy/AdvReac Type Severity Reaction Status Date / Time Fish Containing Products Allergy Severe Hives Verified 07/04/17 11:42 tomato Allergy Severe Verified 07/04/17 11:42 orange juice Allergy Intermediate Swelling Verified 07/04/17 11:42 No Known Drug Allergies Allergy Verified 07/04/17 11:42 History of Present Illness: Pt. is a 52 YO female here to Detox from Alcohol. Pt. has had 1 previous Detox admission at [facility] in the past. Exam Limitations: No Limitations - Ebola screening Have you traveled outside of the country in the last 21 days: No Have you had contact with anyone from an Ebola affected area: No Have you been sick,other than usual withdrawal symptoms: No Do you have a fever: No - Review of Systems Constitutional: Diaphoresis, Loss of Appetite, Malaise, Night Sweats, Changes in sleep EENT: reports: Nose Congestion, Sinus Pressure Respiratory: reports: Productive cough Cardiac: reports: No Symptoms Reported GI: reports: Diarrhea, Nausea, Poor Appetite, Vomiting, Abdominal cramping : reports: No Symptoms Reported Musculoskeletal: reports: No Symptoms Reported Integumentary: reports: No Symptoms Reported Neuro: reports: Numbness (Left leg down to foot.), Tingling (Left leg down to foot.), Tremors Endocrine: reports: No Symptoms Reported Hematology: reports: No Symptoms Reported Psychiatric: reports: Judgement Intact, Mood/Affect Appropiate, Orientated x3, Anxious Other Systems: Reviewed and Negative Patient History - Patient Medical History Hx Anemia: No Hx Asthma: Yes (Pt is on MDI, Symbicort.) Hx Chronic Obstructive Pulmonary Disease (COPD): No Hx Cancer: No Hx Cardiac Disorders: No Hx Congestive Heart Failure: No Hx Hypertension: Yes (On meds.) Hx Hypercholesterolemia: Yes (On med.) Hx Pacemaker: No HX Cerebrovascular Accident: No Hx Seizures: No Hx Dementia: No Hx Diabetes: Yes (Type II; Takes Metformin.) Hx Gastrointestinal Disorders: No Hx Liver Disease: No Hx Genitourinary Disorders: No Hx Sexually Transmitted Disorders: No Hx Renal Disease (ESRD): No Hx Thyroid Disease: No Hx Human Immunodeficiency Virus (HIV): No (Last Tested: 05/2017: NEGATIVE.) Hx Hepatitis C: No (Last Tested: 05/2017: NEGATIVE.) Hx Depression: Yes (On meds.) Hx Suicide Attempt: Yes (Tried to drink bleach in 2011; PATIENT DENIES CURRENT SI/HI.) Hx Bipolar Disorder: Yes (ON MEDS) Hx Schizophrenia: Yes (ON MEDS.) Other Medical History: Intermittent Herpes outbreaks affecting lips and tongue. - Patient Surgical History Past Surgical History: No Hx Neurologic Surgery: No Hx Cataract Extraction: No Hx Cardiac Surgery: No Hx Lung Surgery: No Hx Breast Surgery: No Hx Breast Biopsy: No Hx Abdominal Surgery: No Hx Appendectomy: No Hx Cholecystectomy: No Hx Genitourinary Surgery: No Hx Section: No Hx Orthopedic Surgery: No Hx Hysterectomy: No Anesthesia Reaction: No - PPD History Previous Implant?: Yes Documented Results: Negative w/o proof Implanted On Prior [facility] Admission?: Yes Date: 12/24/15 Results: 0 MM PPD to be Administered?: Yes - Reproductive History Patient is a Female of Child Bearing Age (11 -55 yrs old): Yes Last Menstrual Period: 11/10/15 Patient : No - Smoking Cessation Smoking history: Current every day smoker Have you smoked in the past 12 months: Yes Aproximately how many cigarettes per day: 1 Cigars Per Day: 0 Hx Chewing Tobacco Use: No Initiated information on smoking cessation: Yes 'Breaking Loose' booklet given: 07/04/17 (GIVEN ON UNIT.) - Substance & Tx. History Hx Alcohol Use: Yes Hx Substance Use: Yes Substance Use Type: Alcohol, Cocaine Hx Substance Use Treatment: Yes (1 previous Detox admission at [facility].) - Substances Abused Alcohol Route: Oral Frequency: Daily Amount used: 3 40 OZ BEERS/ 1 PINT LIQUOR. Age of first use: 12 Date of Last Use: 07/04/17 Crack Route: Smoking Frequency: Daily Amount used: $250 Age of first use: 40 Date of Last Use: 07/04/17 Family Disease History - Family Disease History Family Disease History: Diabetes: Grandparent (HTN; GRANDMOTHER ), Father (), Mother (htn), Other: Grandparent, Mother Admission Physical Exam [facility] - Vital Signs Vital Signs: Vital Signs - 24 hr 07/04/17 11:03 Temperature 97.5 F L Pulse Rate 97 H Respiratory 18 Rate Blood Pressure 190/90 - Physical General Appearance: Yes: No Apparent Distress, Nourished, Appropriately Dressed , Tremorous, Anxious HEENTM: Yes: Hearing grossly Normal, Normocephalic, Normal Voice, KUNAL, Pharynx Normal Respiratory: Yes: Chest Non-Tender, Lungs Clear, No Respiratory Distress, No Accessory Muscle Use Neck: Yes: No masses,lesions,Nodules, Supple, Trachea in good position Breast: Yes: Breast Exam Deferred Cardiology: Yes: Regular Rhythm, Regular Rate, S1, S2 Abdominal: Yes: Normal Bowel Sounds, Non Tender, Soft, Protuberent Genitourinary: Yes: Within Normal Limits Back: Yes: Normal Inspection Musculoskeletal: Yes: Gait Steady, Joint Stiffness, Muscle Pain Extremities: Yes: Tremors Neurological: Yes: Fully Oriented, Alert, Normal Mood/Affect, Normal Response Integumentary: Yes: Normal Color, Dry, Warm Lymphatic: Yes: Within Normal Limits - Diagnostic (1) Alcohol dependence with uncomplicated withdrawal Current Visit: Yes Status: Acute (2) Asthma Current Visit: Yes Status: Chronic Qualifiers: Asthma severity: mild intermittent Asthma complication type: uncomplicated Qualified Code(s): J45.20 - Mild intermittent asthma, uncomplicated (3) Cocaine dependence, uncomplicated Current Visit: Yes Status: Acute (4) Essential hypertension Current Visit: Yes Status: Chronic (5) Nicotine dependence Current Visit: Yes Status: Chronic Qualifiers: Nicotine product type: cigarettes Substance use status: uncomplicated Qualified Code(s): F17.210 - Nicotine dependence, cigarettes, uncomplicated (6) Herpes virus infection of oral mucosa Current Visit: Yes Status: Acute (7) Type II diabetes mellitus Current Visit: Yes Status: Chronic Qualifiers: Diabetes mellitus complication status: with neurologic complications Diabetes mellitus complication detail: with mononeuropathy Diabetes mellitus retirement insulin use: without retirement use Qualified Code(s): E11.41 - Type 2 diabetes mellitus with diabetic mononeuropathy (8) History of schizophrenia Current Visit: Yes Status: Chronic (9) History of depression Current Visit: Yes Status: Chronic (10) Neuropathy, diabetic Current Visit: Yes Status: Chronic Qualifiers: Diabetes mellitus type: type 2 Diabetes mellitus complication detail: diabetic mononeuropathy Qualified Code(s): E11.41 - Type 2 diabetes mellitus with diabetic mononeuropathy Comment: Affecting Left Leg and foot. Cleared for Admission [facility] - Detox or Rehab [facility] Level of Care: Medically Managed Detox Regimen/Protocol: Librium [facility] Breath Alcohol Content Breath Alcohol Content: 0 Urine Pregancy Test - Result Urine Test Results: Negative- NO Line Present Urine Drug Screen - Results Drug Screen Negative: No Urine Drug Screen Results: DUSTIN-Cocaine, BZO-Benzodiazepines
[2017-07-04] MEDS ORDERED: MAGNESIUM CITRATE 300 ML BOTTLE PO PRN (15:14)
[2017-07-04] MEDS ORDERED: hydrOXYzine PAMOATE 50 MG CAPSULE (FP) PO PRN (15:14)
[2017-07-04] MEDS ORDERED: MENTHOL/PHENOL 1 EACH UD MM PRN (15:14)
[2017-07-04] MEDS ORDERED: ACETAMINOPHEN 325 MG TABLET (FP) PO PRN (15:14)
[2017-07-04] MEDS ORDERED: MAGNESIUM HYDROX 2400MG/30ML ORAL SUSPENSION 30 ML CUP PO PRN (15:14)
[2017-07-04] MEDS ORDERED: P-EPHED 60MG/TRIPROLIDI 2.5MG TABLET PO PRN (15:14)
[2017-07-04] MEDS ORDERED: LOPERAMIDE HCL 2 MG CAPSULE PO PRN (15:14)
[2017-07-04] MEDS ORDERED: IBUPROFEN 400 MG TABLET (FP) PO PRN (15:14)
[2017-07-04] MEDS ORDERED: guaiFENesin/D-METHORPHAN HB 10 ML UNIT-DOSE CUPS PO PRN (15:14)
[2017-07-04] MEDS ORDERED: MAG HYDROX/AL HYDROX/SIMETH 30 ML UNIT-DOSE CUP PO PRN (15:14)
[2017-07-04] MEDS ORDERED: diphenhydrAMINE HCL 50 MG CAPSULE PO PRN (15:14)
[2017-07-04] MEDS ORDERED: chlordiazePOXIDE HCL 25 MG CAPSULE PO PRN (15:14)
[2017-07-04] MEDS ORDERED: NICOTINE POLACRILEX 2 MG GUM BC PRN (15:14)
[2017-07-04] MEDS ORDERED: ONDANSETRON *ODT* 4 MG TABLET SL PRN (15:17)
[2017-07-04] MEDS ORDERED: ALBUTEROL SO4 6.7 GM HFA INHALER IH PRN (15:18)
[2017-07-04] MEDS ORDERED: chlordiazePOXIDE HCL 25 MG CAPSULE PO ONE (16:30)
[2017-07-04] MEDS: cloNIDine HCL 0.1 MG TABLET PO SCH ×2 (18:02→22:06)
[2017-07-04] MEDS: metFORMIN HCL 500 MG TABLET (FP) PO SCH (18:02)
[2017-07-04] MEDS: LISINOPRIL 10 MG TABLET (FP) PO SCH (18:03)
[2017-07-04] MEDS: HYDROCHLOROTHIAZIDE 25 MG TABLET (FP) PO SCH (18:03)
[2017-07-04] MEDS: chlordiazePOXIDE HCL 25 MG CAPSULE PO SCH ×2 (18:05→22:06)
[2017-07-04 21:16] LABS: URINE APPEARANCE SLCLOUDY; URINE BILIRUBIN NEGATIVE (NEGATIVE); URINE BLOOD NEGATIVE (NEGATIVE); URINE COLOR YELLOW; URINE GLUCOSE (UA) NEGATIVE (NEGATIVE); URINE KETONE NEGATIVE (NEGATIVE); URINE LEUK ESTERASE NEGATIVE (NEGATIVE); URINE NITRITE NEGATIVE (NEGATIVE); URINE PROTEIN NEGATIVE (NEGATIVE); URINE UROBILINOGEN NEGATIVE mg/dL (0.2-1.0)
[2017-07-04] MEDS: ATORVASTATIN CA 20 MG TABLET (FP) PO SCH (22:06)
[2017-07-04] MEDS: GABAPENTIN 300 MG CAPSULE (FP) PO SCH (22:06)
[2017-07-04] MEDS: valACYclovir HCL 500 MG TABLET (FP) PO SCH (22:06)
[2017-07-04] MEDS: PROPRANOLOL HCL 10 MG TABLET (FP) PO SCH (22:07)
[2017-07-04] MEDS: THIAMINE HCL 100 MG TABLET (FP) PO SCH (22:09)
[2017-07-04] MEDS: BUDESONIDE/FORMETEROL FUMARATE 160/4.5 mcg INHALER IH SCH (22:44)
[2017-07-05] MEDS: cloNIDine HCL 0.1 MG TABLET PO SCH ×3 (06:14→22:30)
[2017-07-05] MEDS: chlordiazePOXIDE HCL 25 MG CAPSULE PO SCH ×4 (06:15→22:30)
[2017-07-05] MEDS: metFORMIN HCL 500 MG TABLET (FP) PO SCH ×2 (06:17→17:11)
[2017-07-05 11:05] LABS: CALCIUM 8.7 mg/dL (8.5-10.1)
[2017-07-05 11:09] LABS: MCH 28.6 pg (25.7-33.7); MCHC 32.2 g/dl (32.0-36.0); MEAN CELL VOLUME 88.7 fl (80-96); PLATELET COUNT 202 K/MM3 (134-434); WHITE BLOOD COUNT 5.5 K/mm3 (4.0-10.0)
[2017-07-05 11:11] LABS: ALBUMIN 3.6 g/dl (3.4-5.0); ALK PHOS 152 U/L (45-117); ANION GAP 9 (8-16); BILIRUBIN,TOTAL 0.5 mg/dL (0.2-1.0); CO2 28 mmol/L (21-32); GLUCOSE,RANDOM 160 mg/dL (74-106); SGOT/AST 21 U/L (15-37); SGPT/ALT 40 U/L (12-78); TOT PROT 6.7 g/dl (6.4-8.2)
[2017-07-05] MEDS: HYDROCHLOROTHIAZIDE 25 MG TABLET (FP) PO SCH (11:16)
[2017-07-05] MEDS: GABAPENTIN 300 MG CAPSULE (FP) PO SCH ×2 (11:17→22:30)
[2017-07-05] MEDS: valACYclovir HCL 500 MG TABLET (FP) PO SCH ×2 (11:17→22:30)
[2017-07-05] MEDS: LISINOPRIL 10 MG TABLET (FP) PO SCH (11:17)
[2017-07-05] MEDS: PROPRANOLOL HCL 10 MG TABLET (FP) PO SCH ×2 (11:17→22:31)
[2017-07-05] MEDS: BUDESONIDE/FORMETEROL FUMARATE 160/4.5 mcg INHALER IH SCH ×2 (11:17→22:30)
[2017-07-05] MEDS: PRENATAL VITAMINS W/ FOLIC ACID TABLET (FP) PO SCH (11:18)
--- NOTE | 2017-07-05 12:50 | PN ---
S CIWA - CIWA Score Nausea/Vomitin Muscle Tremors: 2 Anxiety: 2 Agitation: 2 Paroxysmal Sweats: 2 Orientation: 0-Oriented Tacttile Disturbances: 2-Mild Itch/Numbness/Burn Auditory Disturbances: 0-None Visual Disturbances: 2-Mild Sensitivity Headache: 2-Mild CIWA-Ar Total Score: 16 S Progress Note (SOAP) Subjective: interrupted sleep, shakes and sweats Objective: 07/05/17 12:49 Vital Signs - 8 hr 07/05/17 06:51 Temperature 97.8 F Pulse Rate 87 Respiratory 18 Rate Blood Pressure 135/67 Laboratory Last Values WBC 5.5 K/mm3 (4.0-10.0) 07/05/17 06:00 RBC 4.52 M/mm3 (3.60-5.2) 07/05/17 06:00 Hgb 12.9 GM/dL (10.7-15.3) 07/05/17 06:00 Hct 40.1 % (32.4-45.2) 07/05/17 06:00 MCV 88.7 fl (80-96) 07/05/17 06:00 MCH 28.6 pg (25.7-33.7) 07/05/17 06:00 MCHC 32.2 g/dl (32.0-36.0) 07/05/17 06:00 RDW 16.0 % (11.6-15.6) H 07/05/17 06:00 Plt Count 202 K/MM3 (134-434) 07/05/17 06:00 MPV 9.0 fl (7.5-11.1) 07/05/17 06:00 Sodium 142 mmol/L (136-145) 07/05/17 06:00 Potassium 3.6 mmol/L (3.5-5.1) 07/05/17 06:00 Chloride 105 mmol/L (98-107) 07/05/17 06:00 Carbon Dioxide 28 mmol/L (21-32) 07/05/17 06:00 Anion Gap 9 (8-16) 07/05/17 06:00 BUN 16 mg/dL (7-18) 07/05/17 06:00 Creatinine 1.0 mg/dL (0.55-1.02) D 07/05/17 06:00 Creat Clearance w eGFR 57.78 (>60) 07/05/17 06:00 POC Glucometer 150 UNITS (()) 07/05/17 06:14 Random Glucose 160 mg/dL (74-106) H D 07/05/17 06:00 Calcium 8.7 mg/dL (8.5-10.1) 07/05/17 06:00 Total Bilirubin 0.5 mg/dL (0.2-1.0) D 07/05/17 06:00 AST 21 U/L (15-37) D 07/05/17 06:00 ALT 40 U/L (12-78) D 07/05/17 06:00 Alkaline Phosphatase 152 U/L (45-117) H 07/05/17 06:00 Total Protein 6.7 g/dl (6.4-8.2) 07/05/17 06:00 Albumin 3.6 g/dl (3.4-5.0) 07/05/17 06:00 Urine Color Yellow 07/04/17 20:00 Urine Appearance Slcloudy 07/04/17 20:00 Urine pH 5.0 (5.0-8.0) 07/04/17 20:00 Ur Specific [place] 1.025 (1.005-1.025) 07/04/17 20:00 Urine Protein Negative (NEGATIVE) 07/04/17 20:00 Urine Glucose (UA) Negative (NEGATIVE) 07/04/17 20:00 Urine Ketones Negative (NEGATIVE) 07/04/17 20:00 Urine Blood Negative (NEGATIVE) 07/04/17 20:00 Urine Nitrite Negative (NEGATIVE) 07/04/17 20:00 Urine Bilirubin Negative (NEGATIVE) 07/04/17 20:00 Urine Urobilinogen Negative mg/dL (0.2-1.0) 07/04/17 20:00 Ur Leukocyte Esterase Negative (NEGATIVE) 07/04/17 20:00 labs noted Assessment: 07/05/17 12:50 withdrawal sx Plan: continue detox
--- NOTE | 2017-07-05 14:47 | CONSULT ---
[facility] Psychiatric Consult - Data Date of interview: 07/05/17 Admission source: [facility] Identifying data: Patient is approached for psychiatric evaluation.She refused. " I don't want to talk to anyone." Witnessed by staff.
[2017-07-05] MEDS: INSULIN SLIDING SCALE (NOVOLOG) 1 VIAL SQ SCH (16:26)
[2017-07-05] MEDS: ATORVASTATIN CA 20 MG TABLET (FP) PO SCH (22:30)
[2017-07-05] MEDS: THIAMINE HCL 100 MG TABLET (FP) PO SCH (22:31)
[2017-07-06] MEDS: chlordiazePOXIDE HCL 25 MG CAPSULE PO SCH ×2 (05:37→10:33)
[2017-07-06] MEDS: cloNIDine HCL 0.1 MG TABLET PO SCH (05:37)
[2017-07-06] MEDS: metFORMIN HCL 500 MG TABLET (FP) PO SCH (07:22)
[2017-07-06] MEDS: INSULIN SLIDING SCALE (NOVOLOG) 1 VIAL SQ SCH (08:24)
--- NOTE | 2017-07-06 09:56 | EKG ---
Test Reason : Blood Pressure : / mmHG Vent. Rate : 087 BPM Atrial Rate : 087 BPM P-R Int : 120 ms QRS Dur : 098 ms QT Int : 382 ms P-R-T Axes : 053 044 074 degrees QTc Int : 459 ms NORMAL SINUS RHYTHM ANTERIOR INFARCT (CITED ON OR BEFORE 28-FEB-2017) ABNORMAL ECG WHEN COMPARED WITH ECG OF 28-FEB-2017 21:35, NO SIGNIFICANT CHANGE WAS FOUND Confirmed by MD ENIO, ERIKA ([id number]) on 07/06/2017 9:55:59 AM Referred By: Confirmed By:ERIKA STEEN MD
[2017-07-06] MEDS: valACYclovir HCL 500 MG TABLET (FP) PO SCH (10:32)
[2017-07-06] MEDS: HYDROCHLOROTHIAZIDE 25 MG TABLET (FP) PO SCH (10:32)
[2017-07-06] MEDS: BUDESONIDE/FORMETEROL FUMARATE 160/4.5 mcg INHALER IH SCH (10:32)
[2017-07-06] MEDS: PRENATAL VITAMINS W/ FOLIC ACID TABLET (FP) PO SCH (10:32)
[2017-07-06] MEDS: LISINOPRIL 10 MG TABLET (FP) PO SCH (10:32)
[2017-07-06] MEDS: GABAPENTIN 300 MG CAPSULE (FP) PO SCH (10:32)
[2017-07-06] MEDS: PROPRANOLOL HCL 10 MG TABLET (FP) PO SCH (10:33)
[2017-07-06 10:46] VITALS: BP 111/73; PULSE 77; TEMP 98.6
--- NOTE | 2017-07-06 13:24 | DS ---
[facility] Detox Discharge Summary Admission Date: 07/04/17 Discharge Date: 07/06/17 - History Present History: Alcohol Dependence, Cocaine Dependence Pertinent Past History: Asthma HTN Type II DM Morbid Obesity - Physical Exam Results Vital Signs: Vital Signs Temperature 98.6 F 07/06/17 10:00 Pulse Rate 77 07/06/17 10:00 Respiratory Rate 18 07/06/17 10:00 Blood Pressure 111/73 07/06/17 10:00 O2 Sat by Pulse Oximetry (%) Pertinent Admission Physical Exam Findings: Withdrawal sx. Laboratory Last Values WBC 5.5 K/mm3 (4.0-10.0) 07/05/17 06:00 RBC 4.52 M/mm3 (3.60-5.2) 07/05/17 06:00 Hgb 12.9 GM/dL (10.7-15.3) 07/05/17 06:00 Hct 40.1 % (32.4-45.2) 07/05/17 06:00 MCV 88.7 fl (80-96) 07/05/17 06:00 MCH 28.6 pg (25.7-33.7) 07/05/17 06:00 MCHC 32.2 g/dl (32.0-36.0) 07/05/17 06:00 RDW 16.0 % (11.6-15.6) H 07/05/17 06:00 Plt Count 202 K/MM3 (134-434) 07/05/17 06:00 MPV 9.0 fl (7.5-11.1) 07/05/17 06:00 Sodium 142 mmol/L (136-145) 07/05/17 06:00 Potassium 3.6 mmol/L (3.5-5.1) 07/05/17 06:00 Chloride 105 mmol/L (98-107) 07/05/17 06:00 Carbon Dioxide 28 mmol/L (21-32) 07/05/17 06:00 Anion Gap 9 (8-16) 07/05/17 06:00 BUN 16 mg/dL (7-18) 07/05/17 06:00 Creatinine 1.0 mg/dL (0.55-1.02) D 07/05/17 06:00 Creat Clearance w eGFR 57.78 (>60) 07/05/17 06:00 POC Glucometer 162 UNITS (()) 07/06/17 05:36 Random Glucose 160 mg/dL (74-106) H D 07/05/17 06:00 Calcium 8.7 mg/dL (8.5-10.1) 07/05/17 06:00 Total Bilirubin 0.5 mg/dL (0.2-1.0) D 07/05/17 06:00 AST 21 U/L (15-37) D 07/05/17 06:00 ALT 40 U/L (12-78) D 07/05/17 06:00 Alkaline Phosphatase 152 U/L (45-117) H 07/05/17 06:00 Total Protein 6.7 g/dl (6.4-8.2) 07/05/17 06:00 Albumin 3.6 g/dl (3.4-5.0) 07/05/17 06:00 Urine Color Yellow 07/04/17 20:00 Urine Appearance Slcloudy 07/04/17 20:00 Urine pH 5.0 (5.0-8.0) 07/04/17 20:00 Ur Specific [place] 1.025 (1.005-1.025) 07/04/17 20:00 Urine Protein Negative (NEGATIVE) 07/04/17 20:00 Urine Glucose (UA) Negative (NEGATIVE) 07/04/17 20:00 Urine Ketones Negative (NEGATIVE) 07/04/17 20:00 Urine Blood Negative (NEGATIVE) 07/04/17 20:00 Urine Nitrite Negative (NEGATIVE) 07/04/17 20:00 Urine Bilirubin Negative (NEGATIVE) 07/04/17 20:00 Urine Urobilinogen Negative mg/dL (0.2-1.0) 07/04/17 20:00 Ur Leukocyte Esterase Negative (NEGATIVE) 07/04/17 20:00 RPR Titer Nonreactive (NONREACTIVE) 07/05/17 06:00 labs noted - Treatment Patient has Accepted a Rehab Referral to: Pt. has Psychiatric & Medical f/u in place - Medication Discharge Medications: Ambulatory Orders Gabapentin 300 mg PO BID 06/28/15 Albuterol Sulfate Inhaler - [Ventolin Hfa Inhaler -] 2 inh PO QID PRN 12/22/15 Metformin HCl 500 mg PO BID 12/22/15 Lisinopril 10 mg PO DAILY 02/28/17 Propranolol HCl [Inderal -] 10 mg PO BID 02/28/17 Valacyclovir HCl [Valtrex -] 500 mg PO Q12H 02/28/17 Aripiprazole [Abilify -] 10 mg PO DAILY 07/04/17 Atorvastatin Calcium 20 mg PO HS 07/04/17 Budesonide/Formeterol Fumarate [SYMBICORT 160/4.5mcg -] 07/04/17 Budesonide/Formeterol Fumarate [SYMBICORT 160/4.5mcg -] 1 inh PO BID 07/04/17 Clonidine HCl [Catapres -] 0.1 mg PO TID 07/04/17 Hydrochlorothiazide [Hctz -] 25 mg PO DAILY 07/04/17 Ibuprofen [Motrin -] 400 mg PO Q6H PRN 07/04/17 Mirtazapine [Remeron -] 15 mg PO HS 07/04/17 Quetiapine Fumarate [Seroquel -] 200 mg PO HS 07/04/17 Trazodone HCl [Desyrel -] 100 mg PO HS 07/04/17 - Diagnosis (1) Alcohol dependence with uncomplicated withdrawal Current Visit: Yes Status: Acute (2) Cocaine dependence, uncomplicated Current Visit: Yes Status: Acute (3) Herpes virus infection of oral mucosa Current Visit: Yes Status: Acute (4) Asthma Current Visit: Yes Status: Chronic Qualifiers: Asthma severity: mild intermittent Asthma complication type: uncomplicated Qualified Code(s): J45.20 - Mild intermittent asthma, uncomplicated (5) Essential hypertension Current Visit: Yes Status: Chronic (6) History of schizophrenia Current Visit: Yes Status: Chronic (7) Neuropathy, diabetic Current Visit: Yes Status: Chronic Qualifiers: Diabetes mellitus type: type 2 Diabetes mellitus complication detail: diabetic mononeuropathy Qualified Code(s): E11.41 - Type 2 diabetes mellitus with diabetic mononeuropathy (8) Nicotine dependence Current Visit: Yes Status: Chronic Qualifiers: Nicotine product type: cigarettes Substance use status: uncomplicated Qualified Code(s): F17.210 - Nicotine dependence, cigarettes, uncomplicated (9) Type II diabetes mellitus Current Visit: Yes Status: Chronic Qualifiers: Diabetes mellitus complication status: with neurologic complications Diabetes mellitus complication detail: with mononeuropathy Diabetes mellitus manager intermediate insulin use: without mcfp use Qualified Code(s): E11.41 - Type 2 diabetes mellitus with diabetic mononeuropathy; Z79.4 - custodial (current) use of insulin - AMA Did Patient Leave Against Medical Advice: Yes
[2017-07-06] MEDS ORDERED: chlordiazePOXIDE 5 MG CAPSULE PO SCH (17:00)
[2017-07-07] MEDS ORDERED: chlordiazePOXIDE HCL 10 MG CAPSULE PO SCH (17:00)
== END 2017-07-06 13:00 | disposition left against medical advice (07) | DRG 770 ==
LOC: YASAS 10:48 → Y6N 15:49
PROVIDERS: ADMIT Internal Medicine Addiction Medicine; ATTEND Internal Medicine Addiction Medicine
PROC: HZ2ZZZZ Detoxification Services for Substance Abuse Treatment (ICD-10-PCS; principal; 2017-07-04)
DX: F10.230 Alcohol dependence with withdrawal, uncomplicated (principal); F14.20 Cocaine dependence, uncomplicated; F17.210 Nicotine dependence, cigarettes, uncomplicated; F20.0 Paranoid schizophrenia; I10 Essential (primary) hypertension; E11.41 Type 2 diabetes mellitus with diabetic mononeuropathy; J45.20 Mild intermittent asthma, uncomplicated; Z79.4 Long term (current) use of insulin; E78.00 Pure hypercholesterolemia, unspecified; B00.89 Other herpesviral infection; Z91.013 Allergy to seafood; Z91.018 Allergy to other foods; Z91.5 Personal history of self-harm
CPT/HCPCS: 36415; 80053; 81003; 85027; 86593; 93005; 93010